=== PATIENT | female | born 1965 | race Caucasian/White ===

== ENCOUNTER 2016-06-16 17:08 | Emergency (ER) | payer BC, OTHER ==
[2016-06-16] MEDS ORDERED: ASPIRIN 81 MG CHEW TABLET As Ordered ONE (17:55)
--- NOTE | 2016-06-16 18:30 | REP ---
Clinical: Chest pain . Comparison: 01/25/2005 . Technique: PA and lateral. Findings: The mediastinum and cardiac silhouette are normal. The lung alvarez are clear and without acute consolidation, effusion, or pneumothorax. The skeletal structures are intact and normal. Impression: 1. No acute cardiopulmonary process. Signed by Timbo Quiñones MD 06/16/2016 06:22 P
[2016-06-16 18:43] LABS: BASO # 0.3 K/mm3 (0.0-0.2); BASO % 2.3 % (0.0-1.0); EOS # 0.2 K/mm3 (0.0-0.50); EOS % 1.8 % (0.0-3.0); LARGE UNSTAINED CELL # 0.2 K/mm3 (0.0-0.4); LARGE UNSTAINED CELL % 1.6 % (0.0-4.0); LYMPH % 25.5 % (24.0-44.0); MEAN CORPUSCULAR HEMOGLOBIN 30.4 pg (27.0-33.0); MEAN CORPUSCULAR HGB CONC 34.4 g/dl (32.0-36.5); MEAN CORPUSCULAR VOLUME 88.4 fl (80.0-96.0); MONO # 0.7 K/mm3 (0.0-0.8); NEUTROPHILS % 62.8 % (36.0-66.0); PLATELET COUNT, AUTOMATED 331 k/mm3 (150-450); RED CELL DISTRIBUTION WIDTH 13.1 % (11.5-14.5); WHITE BLOOD COUNT 11.2 K/mm3 (4.0-10.0)
[2016-06-16 19:03] LABS: ALBUMIN/GLOBULIN RATIO 1.29 (1.00-1.93); ALKALINE PHOSPHATASE 96 U/L (45-117); ALT/SGPT 32 U/L (12-78); ANION GAP 8 MEQ/L (8-16); AST/SGOT 11 U/L (15-37); BILIRUBIN,DIRECT 0.1 MG/DL (0.0-0.2); BILIRUBIN,TOTAL 0.5 MG/DL (0.2-1.0); BLOOD UREA NITROGEN 15 MG/DL (7-18); CARBON DIOXIDE LEVEL 30 MEQ/L (21-32); CHLORIDE LEVEL 103 MEQ/L (98-107); CREATININE FOR GFR 0.77 MG/DL (0.55-1.02); GLOMERULAR FILTRATION RATE > 60.0 (>58); GLUCOSE, FASTING 191 MG/DL (70-105); POTASSIUM SERUM 3.6 MEQ/L (3.5-5.1); SODIUM LEVEL 141 MEQ/L (136-145); TOTAL PROTEIN 7.1 GM/DL (6.4-8.2)
[2016-06-16] MEDS ORDERED: ISOVUE-370 76% 100ML VIAL (Q9967) As Ordered ONE (19:59)
--- NOTE | 2016-06-16 21:10 | REPUSA ---
CLINICAL HISTORY: Abdominal pain. TECHNIQUE: Multiple axial, sagittal and coronal CT images were obtained through the abdomen and pelvi s after administration of intravenous contrast material. COMMENTS: The liver demonstrates decreased attenuation compatible with fatty infiltration, without mass or def ect. There is no intra or extrahepatic biliary ductal dilatation. The spleen is normal. The gallbladd er is surgically absent. The pancreas is of normal contour and attenuation characteristics. There is no evidence of adrenal mass. Both kidneys demonstrate prompt and equal nephrograms. The kidneys are normal in size, shape and conf iguration. There is no evidence of renal or ureteral mass. No renal or ureteral calculi are identifie d. There is no hydroureter or hydronephrosis. No evidence for appendicitis. There is no bowel wall thickening. No evidence for small or large star l obstruction. There is no evidence of abdominal ascites or lymphadenopathy. There is no evidence of intrinsic or extrinsic bladder mass. There is no pelvic ascites or lymphadeno dorothy. 3.5 cm right ovarian cyst is seen. The uterus and left ovary are unremarkable. Images of the lung bases show no evidence of pleural or parenchymal mass. There are no pleural effusi ons. The bony structures are free of lytic or blastic lesions. Multilevel degenerative changes are seen in volving the thoracolumbar spine. Scattered calcifications are seen involving the aorta and major bran ches compatible with atherosclerosis. IMPRESSION: Fatty liver. 3.5 cm right ovarian cyst is seen. Consider follow-up pelvic ultrasound. No evidence of diverticulosis or diverticulitis. Thank you for your kind referral of this patient.
[2016-06-16] MEDS ORDERED: NORCO, ANEXSIA 5/325MG TABLET (HYDROcodone/ACETAMINOPHEN) As Ordered ONE (21:51)
--- NOTE | 2016-06-16 21:59 | EDDOCDS ---
Physician Documentation [facility] Name: Padmini Du Age: 50 yrs Sex: Female : 1965 Arrival Date: 06/16/2016 Time: 17:08 Bed 5 Private MD: Selwyn Garcia Disposition: 06/16 21:49 Critical Care: Critical care not applicable. le Disposition: 06/16/16 21:47 Discharged to Home/Self Care. Impression: Other abdominal pain - LUQ, LLQ, uncertain etiology, Other ovarian cysts - right. - Condition is Stable. - Discharge Instructions: Ovarian Cyst, Abdominal Pain, Women. - Medication Reconciliation, Local Pharmacy Hours form. - Follow up: Selwyn Garcia; When: Call to arrange an appointment; Reason: Recheck today's complaints, Continuance of care. - Problem is new. - Symptoms have improved. - Notes: Return to the ED for worsening symptoms or any other concerns Historical: - Allergies: no known allergies; - Home Meds: 1. aspirin 81 mg Oral tab 1 tab once daily 2. hydrochlorothiazide 25 mg Oral tab 1 tab once daily 3. simvastatin 40 mg Oral tab 1 tab once daily 4. ramipril 2.5 mg Oral cap 1 cap once daily 5. metformin 1,000 mg Oral tab daily 6. Metamucil Smooth Texture Oral pack daily 7. ranitidine HCl 150 mg Oral tbef as needed 8. Probiotic 10 billion cell oral cap daily - PMHx: Hypertension; Hypercholesterolemia; Diabetes - NIDDM: controlled; - PSHx: Adenoidectomy; Tonsillectomy; Cholecystectomy; - Social history: Smoking status: Patient states was never smoker of tobacco. No barriers to communication noted, The patient speaks fluent Brazilian. - Family history: Pertinent for heart disease, A-fib. - : The pt / caregiver states he / she is not on anticoagulants. Home medication list is obtained from the patient. - Exposure Risk Screening:: None identified. CAR CARDER: 18:04 LMP 05/18/2016 kc3 Vital Signs: 17:09 BP 176 / 89; Pulse 100; Resp 18 S; Temp 98.4(O); Pulse Ox 98% on R/A; Weight 90.72 kg / dd6 200 lbs (R); Height 5 ft. 4 in. (162.56 cm) (R); 17:31 BP 133 / 75 (auto/); kc3 17:33 Pulse 92 MON; Pulse Ox 96% ; kc3 17:46 BP 132 / 70 (auto/); kc3 17:47 Pulse 88 MON; Pulse Ox 95% ; kc3 18:01 BP 125 / 69 (auto/); kc3 18:01 Pulse 100 MON; Pulse Ox 96% ; kc3 18:16 BP 130 / 73 (auto/); kc3 18:17 Pulse 88 MON; Pulse Ox 96% ; kc3 18:31 BP 110 / 84 (auto/); kc3 18:32 Pulse 90 MON; Pulse Ox 97% ; kc3 21:50 BP 127 / 73; Pulse 87; Resp 18; Temp 99.1(TE); Pulse Ox 98% on R/A; Pain 4/10; faisal 17:09 Body Mass Index 34.33 (90.72 kg, 162.56 cm) dd6 MDM: 17:24 ECG WITH READING ER PHYS+CARDIAG ordered. EDMS 17:51 Aspirin Chewable Tablet 324 mg PO once ordered. le 17:51 Head Of Merchandise Buying/Pulse Ox/q 30 min VS ordered. le 17:51 IV Saline Lock ordered. le 17:51 Rhythm Strip to chart ordered. le 17:51 Undress patient appropriately for examination ordered. le 17:51 Basic Metabolic Profile Ordered. EDMS 17:51 CBC with Diff Ordered. EDMS 17:51 Cardiac Injury Profile Ordered. EDMS 17:51 D-Dimer Quant Ordered. EDMS 17:51 Troponin Ordered. EDMS 17:51 Liver Profile Ordered. EDMS 17:51 Lipase Ordered. EDMS 17:53 Chest, 2 View (pa\E\lat) Ordered. EDMS 18:33 Financial registration complete. zo 18:33 [facility] [place] Payment Agreement was scanned into [employer] and attached to record. zo 19:40 Basic Metabolic Profile Reviewed. le 19:40 CBC with Diff Reviewed. le 19:40 Liver Profile Reviewed. le 19:40 Cardiac Injury Profile Reviewed. le 19:40 D-Dimer Quant Reviewed. le 19:40 Troponin Reviewed. le 19:40 Lipase Reviewed. le 19:40 Chest, 2 View (pa\E\lat) Reviewed. le 19:42 CT ABD & PELVIS: IV Contrast Only Ordered. EDMS 21:43 Fluid Challenge ordered. le 21:47 HYDROcodone-acetaminophen 5 mg-325 mg 1 tabs PO once ordered. le Administered Medications: 18:01 Drug: Aspirin 324 mg [aspirin 81 mg chewable tablet (4 tabs)] Route: PO; kc3 21:55 Drug: HYDROcodone-acetaminophen 1 tabs [hydrocodone 5 mg-acetaminophen 325 mg tablet (1 af2 tabs)] Route: PO; Signatures: Dispatcher [employer] EDAna Andrade Lisa, DEPUTY COURT DEPUTY COURT Madeline Gomez RN RN rs3 Maribel Kern RN RN af2 Sharlene Ag RN RN kc3 The chart was reviewed and I authenticate all verbal orders and agree with the evaluation and treatment provided.Attachments: 18:33 [facility] [place] Payment Agreement zo MTDD
--- NOTE | 2016-06-16 22:00 | EDDOCDS ---
Nurse's Notes [facility] Name: Padmini Du Age: 50 yrs Sex: Female : 1965 Arrival Date: 06/16/2016 Time: 17:08 Bed 5 Private MD: Selwyn Garcia Diagnosis: Other abdominal pain-LUQ, LLQ, uncertain etiology;Other ovarian cysts-right Presentation: 06/16 17:14 Presenting complaint: Patient states: left upper abdomen pain radiates to back and hip. rs3 was seen at urgent care and had EKG, sent her here. Aspirin was not taken prior to arrival. Adult Sepsis Screening: The patient does not have new or worsening altered mentation. Patient's respiratory rate is less than 22. Systolic blood pressure is greater than 100. Patient has a qSOFA score of 0- Negative Sepsis Screen. Suicide/Homicide risk assessment- the patient denies having any suicidal and/or homicidal ideations and does not present with any other emotional, behavioral or mental health complaints. Status: Patient is not a consumer services advisor or dependent. Transition of care: patient was not received from another setting of care. 17:14 Acuity: KRYSTLE Level 3 rs3 17:14 Method Of Arrival: Walkin/Carried/Asstd rs3 Triage Assessment: 17:18 General: Appears in no apparent distress. Pain: Location: left upper quadrant. Pt rs3 Declines HIV testing. Cardiovascular: Chest pain is described as Pain is 4 out of 10 on a pain scale. radiates back episodes are intermittent began 2 days ago. SHIRRER: 18:04 LMP 05/18/2016 kc3 Historical: - Allergies: no known allergies; - Home Meds: 1. aspirin 81 mg Oral tab 1 tab once daily 2. hydrochlorothiazide 25 mg Oral tab 1 tab once daily 3. simvastatin 40 mg Oral tab 1 tab once daily 4. ramipril 2.5 mg Oral cap 1 cap once daily 5. metformin 1,000 mg Oral tab daily 6. Metamucil Smooth Texture Oral pack daily 7. ranitidine HCl 150 mg Oral tbef as needed 8. Probiotic 10 billion cell oral cap daily - PMHx: Hypertension; Hypercholesterolemia; Diabetes - NIDDM: controlled; - PSHx: Adenoidectomy; Tonsillectomy; Cholecystectomy; - Social history: Smoking status: Patient states was never smoker of tobacco. No barriers to communication noted, The patient speaks fluent Guamanian. - Family history: Pertinent for heart disease, A-fib. - : The pt / caregiver states he / she is not on anticoagulants. Home medication list is obtained from the patient. - Exposure Risk Screening:: None identified. Screenin:49 Screening information is obtained from the patient. Fall risk: No risks identified. kc3 Assistance ADL's: requires no assistance with activities of daily living. Abuse/DV Screen: The patient / caregiver reports he/she is: not in a situation that causes fear, pain or injury. Nutritional screening: No deficits noted. home support is adequate. 18:03 Advance Directives: Currently, there is a health care proxy, Kwame Du, . kc3 Assessment: 17:45 General: Appears in no apparent distress, comfortable, Behavior is appropriate for age. kc3 Pain: Location: left scapular area and left upper quadrant Pain currently is 4 out of 10 on a pain scale. Neurological: Level of Consciousness is awake, alert, obeys commands, Oriented to person, place, time. Cardiovascular: Rhythm is sinus rhythm Chest pain is denied. Respiratory: Airway is patent Respiratory effort is even, unlabored. Respiratory: Denies shortness of breath. GI: Denies nausea. Derm: Skin is pink, warm & dry. Musculoskeletal: Circulation, motion, and sensation intact. 17:56 General: Leslie Rubio NP at bedside. . kc3 18:38 General: Appears in no apparent distress, comfortable, Behavior is appropriate for age, kc3 cooperative. Pain: Location: left scapular area Pain currently is 5 out of 10 on a pain scale. Neurological: Level of Consciousness is awake, alert, obeys commands, Oriented to person, place, time. Cardiovascular: Rhythm is sinus rhythm. Respiratory: Airway is patent Respiratory effort is even, unlabored. Derm: Skin is pink, warm & dry. Musculoskeletal: Circulation, motion, and sensation intact. 19:12 General: Appears in no apparent distress, comfortable, Behavior is appropriate for age, af2 cooperative, Assumed care of pt at this time, pt is lying on stretcher resting quietly without complaint. Family remains at bedside. Updated regarding plan of care.. Neurological: Level of Consciousness is awake, alert, obeys commands, Oriented to person, place, time. Cardiovascular: Chest pain is denied. Respiratory: Airway is patent Respiratory effort is even, unlabored. GI:. Derm: Skin is pink, warm & dry. Musculoskeletal: Reports pain in back. 20:30 General: Appears in no apparent distress, comfortable, Behavior is appropriate for age, af2 cooperative, pt transported to ct, tolerated procedure well. piv patent.. 21:28 General: Appears in no apparent distress, comfortable, Behavior is appropriate for age, af2 cooperative. Neurological: Level of Consciousness is awake, alert, obeys commands, Oriented to person, place, time. Respiratory: Airway is patent Respiratory effort is even, unlabored. Derm: Skin is pink, warm & dry. Vital Signs: 17:09 BP 176 / 89; Pulse 100; Resp 18 S; Temp 98.4(O); Pulse Ox 98% on R/A; Weight 90.72 kg dd6 (R); Height 5 ft. 4 in. (162.56 cm) (R); 17:31 BP 133 / 75 (auto/); kc3 17:33 Pulse 92 MON; Pulse Ox 96% ; kc3 17:46 BP 132 / 70 (auto/); kc3 17:47 Pulse 88 MON; Pulse Ox 95% ; kc3 18:01 BP 125 / 69 (auto/); kc3 18:01 Pulse 100 MON; Pulse Ox 96% ; kc3 18:16 BP 130 / 73 (auto/); kc3 18:17 Pulse 88 MON; Pulse Ox 96% ; kc3 18:31 BP 110 / 84 (auto/); kc3 18:32 Pulse 90 MON; Pulse Ox 97% ; kc3 21:50 BP 127 / 73; Pulse 87; Resp 18; Temp 99.1(TE); Pulse Ox 98% on R/A; Pain 4/10; faisal 17:09 Body Mass Index 34.33 (90.72 kg, 162.56 cm) dd6 Vitals: 17:09 Log In Time: June 16, 2016 at 17:07. dd6 ED Course: 17:09 Patient visited by Marco Antonio Pate PCA. dd6 17:09 Selwyn Garcia is Private Physician. dd6 17:09 Patient moved to Waiting dd6 17:10 Patient moved to Pre RCE dd6 17:13 Patient visited by Cami Spencer PCA. bnb 17:16 Triage Initiated rs3 17:21 Patient moved to 5 dls 17:34 Pt greeted and oriented to ED. Patient advised of names of staff involved in care, bnb location of call bush, wait times and NPO status. Patient has correct armband on for positive identification. Placed in gown. Bed in low position. Call light in reach. Side rails up X 1. 17:35 Pt greeted and oriented to ED. Patient advised of names of staff involved in care, bnb location of call bush, wait times and NPO status. gambling monitor on. Pulse ox on. NIBP on. 17:35 EKG done. (by ED staff). Reviewed by Jose Alberto Welch MD. bnb 17:36 Patient visited by Cami Spencer PCA. bnb 17:37 [facility] le 17:48 Inserted saline lock: 18 gauge in right antecubital area and blood collected. The kc3 patient tolerated the procedure well. performed by Nelida Heath RN. 17:49 The patient / caregiver is instructed regarding the plan of care and ED course. kc3 17:56 Lipase Sent. kc3 17:56 Liver Profile Sent. kc3 17:56 Basic Metabolic Profile Sent. kc3 17:56 CBC with Diff Sent. kc3 17:57 Patient visited by Sharlene Ag RN. kc3 17:57 Cardiac Injury Profile Sent. kc3 17:57 D-Dimer Quant Sent. kc3 17:57 Troponin Sent. kc3 17:59 Patient visited by Leslie Rubio FNP. le 18:05 Patient visited by Sharlene Ag RN. kc3 18:33 [facility] Payment Agreement was scanned into [employer] and attached to record. zo 18:34 Chest, 2 View (pa\E\lat) Returned. EDMS 18:38 Patient visited by Sharlene Ag RN. kc3 18:39 Patient visited by Sharlene Ag RN. kc3 19:12 Patient visited by Maribel Kern RN. af2 19:14 Patient visited by Maribel Kern RN. af2 19:57 Patient visited by Maribel Kern RN. af2 20:26 Maribel Kern RN is Primary Nurse. af2 20:58 Patient visited by Maribel Kern RN. af2 21:29 Patient visited by Maribel KernDUTCH. af2 21:30 CT ABD & PELVIS: IV Contrast Only Returned. EDMS 21:47 Selwyn Garcia is Referral Physician. le 21:50 Patient visited by Earlene Almazan PCA. faisal 21:58 Discontinued IV lock intact, bleeding controlled, pressure dressing applied, No af2 redness/swelling at site. No procedures done that require assistance. Administered Medications: 18:01 Drug: Aspirin 324 mg [aspirin 81 mg chewable tablet (4 tabs)] Route: PO; kc3 21:55 Drug: HYDROcodone-acetaminophen 1 tabs [hydrocodone 5 mg-acetaminophen 325 mg tablet (1 af2 tabs)] Route: PO; Order Results: Lab Order: Basic Metabolic Profile; SPEC'M 06/16/16 17:32 Test: GLUCOSE, FASTING; Value: 191; Range: 70-105; Abnormal: Above high normal; Units: MG/DL; Status: F Test: BLOOD UREA NITROGEN; Value: 15; Range: 7-18; Units: MG/DL; Status: F Test: CREATININE FOR GFR; Value: 0.77; Range: 0.55-1.02; Units: MG/DL; Status: F Test: GLOMERULAR FILTRATION RATE; Value: > 60.0; Range: >58; Status: F Test: SODIUM LEVEL; Value: 141; Range: 136-145; Units: MEQ/L; Status: F Test: POTASSIUM SERUM; Value: 3.6; Range: 3.5-5.1; Units: MEQ/L; Status: F Test: CHLORIDE LEVEL; Value: 103; Range: 98-107; Units: MEQ/L; Status: F Test: CARBON DIOXIDE LEVEL; Value: 30; Range: 21-32; Units: MEQ/L; Status: F Test: ANION GAP; Value: 8; Range: 8-16; Units: MEQ/L; Status: F Test: CALCIUM LEVEL; Value: 9.0; Range: 8.5-10.1; Units: MG/DL; Status: F Test Note: ; Units are mL/min/1.73 m2 Chronic Kidney Disease Staging per NKF: Stage I & II GFR >=60 Normal to Mildly Decreased Stage III GFR 30-59 Moderately Decreased Stage IV GFR 15-29 Severely Decreased Stage V GFR <15 Very Little GFR Left ESRD GFR <15 on [employer]ING[employer] ASSEMBLER Lab Order: CBC with Diff; SPEC'M 06/16/16 17:32 Test: WHITE BLOOD COUNT; Value: 11.2; Range: 4.0-10.0; Abnormal: Above high normal; Units: K/mm3; Status: F Test: RED BLOOD COUNT; Value: 4.72; Range: 4.00-5.40; Units: M/mm3; Status: F Test: HEMOGLOBIN; Value: 14.4; Range: 12.0-16.0; Units: g/dl; Status: F Test: HEMATOCRIT; Value: 41.8; Range: 36.0-47.0; Units: %; Status: F Test: MEAN CORPUSCULAR VOLUME; Value: 88.4; Range: 80.0-96.0; Units: fl; Status: F Test: MEAN CORPUSCULAR HEMOGLOBIN; Value: 30.4; Range: 27.0-33.0; Units: pg; Status: F Test: MEAN CORPUSCULAR HGB CONC; Value: 34.4; Range: 32.0-36.5; Units: g/dl; Status: F Test: RED CELL DISTRIBUTION WIDTH; Value: 13.1; Range: 11.5-14.5; Units: %; Status: F Test: PLATELET COUNT, AUTOMATED; Value: 331; Range: 150-450; Units: k/mm3; Status: F Test: NEUTROPHILS %; Value: 62.8; Range: 36.0-66.0; Units: %; Status: F Test: LYMPH %; Value: 25.5; Range: 24.0-44.0; Units: %; Status: F Test: MONO %; Value: 6.0; Range: 0.0-5.0; Abnormal: Above high normal; Units: %; Status: F Test: EOS %; Value: 1.8; Range: 0.0-3.0; Units: %; Status: F Test: BASO %; Value: 2.3; Range: 0.0-1.0; Abnormal: Above high normal; Units: %; Status: F Test: LARGE UNSTAINED CELL %; Value: 1.6; Range: 0.0-4.0; Units: %; Status: F Test: NEUTROPHILS #; Value: 7.0; Range: 1.8-7.7; Units: K/mm3; Status: F Test: LYMPH #; Value: 3.0; Range: 1.5-4.5; Units: K/mm3; Status: F Test: MONO #; Value: 0.7; Range: 0.0-0.8; Units: K/mm3; Status: F Test: EOS #; Value: 0.2; Range: 0.0-0.50; Units: K/mm3; Status: F Test: BASO #; Value: 0.3; Range: 0.0-0.2; Abnormal: Above high normal; Units: K/mm3; Status: F Test: LARGE UNSTAINED CELL #; Value: 0.2; Range: 0.0-0.4; Units: K/mm3; Status: F Lab Order: Cardiac Injury Profile; [facility] 06/16/16 17:32 Test: CPK CREATINE PHOSPHOKINASE; Value: 70; Range: 26-192; Units: U/L; Status: F Test: CK-MB VALUE MASS; Value: 1.0; Range: 0.0-3.6; Units: NG/ML; Status: F Test: MB/CK RELATIVE INDEX; Value: 1.42; Range: < OR =4; Status: F Test Note: ; DIAGNOSIS CRITERIA MMB ng/ml Relative Index (RI) NON-AMI < or = 5 N/A [place] > 5 < or = 4 AMI > 5 > 4 Lab Order: D-Dimer Quant; [facility] 06/16/16 17:32 Test: D-DIMER QUANT; Value: < 270.0; Range: <500; Units: ng/ml; Status: F Lab Order: Troponin; [facility] 06/16/16 17:32 Test: TROPONIN I; Value: < 0.02; Range: < 0.10; Units: NG/ML; Status: F Test Note: ; Troponin I Reference Interval for [employer] LOCI: 99th Percentile= 0.00-0.045 ng/ml Risk Stratification: <= 0.10 ng/ml Decreased Risk for Adverse Clinical Events. 0.10-1.50 ng/ml Increased Risk for Adverse Clinical Events. Evaluation of additional criterion and/or repeat testing in 2-6 hours is suggested to rule out myocardial damage. >= 1.50 ng/ml Indicative of Myocardial Injury. Lab Order: Liver Profile; SPEC'M 06/16/16 17:32 Test: AST/SGOT; Value: 11; Range: 15-37; Abnormal: Below low normal; Units: U/L; Status: F Test: ALT/SGPT; Value: 32; Range: 12-78; Units: U/L; Status: F Test: ALKALINE PHOSPHATASE; Value: 96; Range: 45-117; Units: U/L; Status: F Test: BILIRUBIN,TOTAL; Value: 0.5; Range: 0.2-1.0; Units: MG/DL; Status: F Test: BILIRUBIN,DIRECT; Value: 0.1; Range: 0.0-0.2; Units: MG/DL; Status: F Test: TOTAL PROTEIN; Value: 7.1; Range: 6.4-8.2; Units: GM/DL; Status: F Test: ALBUMIN; Value: 4.0; Range: 3.2-5.2; Units: GM/DL; Status: F Test: ALBUMIN/GLOBULIN RATIO; Value: 1.29; Range: 1.00-1.93; Status: F Lab Order: Lipase; SPEC'M 06/16/16 17:32 Test: LIPASE; Value: 169; Range: 73-393; Units: U/L; Status: F Radiology Order: Chest, 2 View (pa\E\lat) Test: Chest, 2 View (pa\E\lat) REASON FOR EXAMINATION: Chest Pain; Clinical: Chest pain .; ; Comparison: 01/25/2005 .; ; Technique: PA and lateral.; ; Findings:; The mediastinum and cardiac silhouette are normal. The lung alvarez are clear and; without acute consolidation, effusion, or pneumothorax. The skeletal structures; are intact and normal.; ; Impression:; 1. No acute cardiopulmonary process.; ; ; Signed by; Timbo Quiñones MD 06/16/2016 06:22 P; Radiology Order: CT ABD & PELVIS: IV Contrast Only Test: CT ABD & PELVIS: IV Contrast Only REASON FOR EXAMINATION: Diverticulitis; ; CLINICAL HISTORY: Abdominal pain.; TECHNIQUE: Multiple axial, sagittal and coronal CT images were obtained through the abdomen and pelvi; s after administration of intravenous contrast material.; COMMENTS:; The liver demonstrates decreased attenuation compatible with fatty infiltration, without mass or def; ect. There is no intra or extrahepatic biliary ductal dilatation. The spleen is normal. The gallbladd; er is surgically absent. The pancreas is of normal contour and attenuation characteristics. There is; no evidence of adrenal mass.; Both kidneys demonstrate prompt and equal nephrograms. The kidneys are normal in size, shape and conf; iguration. There is no evidence of renal or ureteral mass. No renal or ureteral calculi are identifie; d. There is no hydroureter or hydronephrosis.; No evidence for appendicitis. There is no bowel wall thickening. No evidence for small or large star; l obstruction. There is no evidence of abdominal ascites or lymphadenopathy.; There is no evidence of intrinsic or extrinsic bladder mass. There is no pelvic ascites or lymphadeno; dorothy. 3.5 cm right ovarian cyst is seen. The uterus and left ovary are unremarkable.; Images of the lung bases show no evidence of pleural or parenchymal mass. There are no pleural effusi; ons.; The bony structures are free of lytic or blastic lesions. Multilevel degenerative changes are seen in; volving the thoracolumbar spine. Scattered calcifications are seen involving the aorta and major bran; ches compatible with atherosclerosis.; IMPRESSION:; Fatty liver.; 3.5 cm right ovarian cyst is seen. Consider follow-up pelvic ultrasound.; No evidence of diverticulosis or diverticulitis.; Thank you for your kind referral of this patient.; ; Outcome: 21:47 Discharge ordered by Provider. le 21:57 Discharge Assessment: Patient awake, alert and oriented x 3. No cognitive and/or af2 functional deficits noted. Patient verbalized understanding of disposition instructions. patient administered narcotics - no. The following High Risk Discharge criteria are identified: None. Discharged to home ambulatory. Condition: stable. Discharge instructions given to patient, Instructed on discharge instructions, follow up and referral plans. medication usage, no driving heavy equipment, no drinking with medication, Demonstrated understanding of instructions, medications, Pt was receptive of discharge instructions/ teaching. CT Study completed. Property :Personal belongings accompany Pt. 21:58 Patient left the ED. af2 Signatures: Dispatcher [employer] EDMagi Salcido RN RN dls Olin, Zoeann zo Westcott, Leslie, MANAGER BUSINESS SYSTEMS MANAGER BUSINESS SYSTEMS Marco Antonio Delgado, INSURANCE UNDERWRITING ASSISTANT INSURANCE UNDERWRITING ASSISTANT dd6 Kat,Madeline,RN RN rs3 Earlene Almazan, INSURANCE UNDERWRITING ASSISTANT INSURANCE UNDERWRITING ASSISTANT faisal Concha,Maribel,RN RN af2 Sharlene Ag,RN RN kc3 Cami Spencer, INSURANCE UNDERWRITING ASSISTANT INSURANCE UNDERWRITING ASSISTANT bnb MTDD
--- NOTE | 2016-06-17 12:54 | ECGEPIP ---
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
--- NOTE | 2016-06-18 22:59 | EDDOCDS ---
Physician Documentation [facility] Name: Padmini Du Age: 50 yrs Sex: Female : 1965 Arrival Date: 06/16/2016 Time: 17:08 Bed 5 Private MD: Selwyn Garcia Disposition: 06/16 21:49 Critical Care: Critical care not applicable. le Disposition: 06/16/16 21:47 Discharged to Home/Self Care. Impression: Other abdominal pain - LUQ, LLQ, uncertain etiology, Other ovarian cysts - right. - Condition is Stable. - Discharge Instructions: Ovarian Cyst, Abdominal Pain, Women. - Medication Reconciliation, Local Pharmacy Hours form. - Follow up: Selwyn Garcia; When: Call to arrange an appointment; Reason: Recheck today's complaints, Continuance of care. - Problem is new. - Symptoms have improved. - Notes: Return to the ED for worsening symptoms or any other concerns Historical: - Allergies: no known allergies; - Home Meds: 1. aspirin 81 mg Oral tab 1 tab once daily 2. hydrochlorothiazide 25 mg Oral tab 1 tab once daily 3. simvastatin 40 mg Oral tab 1 tab once daily 4. ramipril 2.5 mg Oral cap 1 cap once daily 5. metformin 1,000 mg Oral tab daily 6. Metamucil Smooth Texture Oral pack daily 7. ranitidine HCl 150 mg Oral tbef as needed 8. Probiotic 10 billion cell oral cap daily - PMHx: Hypertension; Hypercholesterolemia; Diabetes - NIDDM: controlled; - PSHx: Adenoidectomy; Tonsillectomy; Cholecystectomy; - Social history: Smoking status: Patient states was never smoker of tobacco. No barriers to communication noted, The patient speaks fluent Japanese. - Family history: Pertinent for heart disease, A-fib. - : The pt / caregiver states he / she is not on anticoagulants. Home medication list is obtained from the patient. - Exposure Risk Screening:: None identified. 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 4 in. (162.56 cm) (R); 17:31 BP 133 / 75 (auto/); kc3 17:33 Pulse 92 MON; Pulse Ox 96% ; kc3 17:46 BP 132 / 70 (auto/); kc3 17:47 Pulse 88 MON; Pulse Ox 95% ; kc3 18:01 BP 125 / 69 (auto/); kc3 18:01 Pulse 100 MON; Pulse Ox 96% ; kc3 18:16 BP 130 / 73 (auto/); kc3 18:17 Pulse 88 MON; Pulse Ox 96% ; kc3 18:31 BP 110 / 84 (auto/); kc3 18:32 Pulse 90 MON; Pulse Ox 97% ; kc3 21:50 BP 127 / 73; Pulse 87; Resp 18; Temp 99.1(TE); Pulse Ox 98% on R/A; Pain 4/10; faisal 17:09 Body Mass Index 34.33 (90.72 kg, 162.56 cm) dd6 MDM: 17:24 ECG WITH READING ER PHYS+CARDIAG ordered. EDMS 17:51 Aspirin Chewable Tablet 324 mg PO once ordered. le 17:51 [employer]/Pulse Ox/q 30 min VS ordered. le 17:51 IV Saline Lock ordered. le 17:51 Rhythm Strip to chart ordered. le 17:51 Undress patient appropriately for examination ordered. le 17:51 Basic Metabolic Profile Ordered. EDMS 17:51 CBC with Diff Ordered. EDMS 17:51 Cardiac Injury Profile Ordered. EDMS 17:51 D-Dimer Quant Ordered. EDMS 17:51 Troponin Ordered. EDMS 17:51 Liver Profile Ordered. EDMS 17:51 Lipase Ordered. EDMS 17:53 Chest, 2 View (pa\E\lat) Ordered. EDMS 18:33 Financial registration complete. zo 18:33 [facility] [place] was scanned into [employer] and attached to record. zo 19:40 Basic Metabolic Profile Reviewed. le 19:40 CBC with Diff Reviewed. le 19:40 Liver Profile Reviewed. le 19:40 Cardiac Injury Profile Reviewed. le 19:40 D-Dimer Quant Reviewed. le 19:40 Troponin Reviewed. le 19:40 Lipase Reviewed. le 19:40 Chest, 2 View (pa\E\lat) Reviewed. le 19:42 CT ABD & PELVIS: IV Contrast Only Ordered. EDMS 21:43 Fluid Challenge ordered. le 21:47 HYDROcodone-acetaminophen 5 mg-325 mg 1 tabs PO once ordered. le 06/17 11:29 T-Sheet-- Draft Copy was scanned into [employer] and attached to record. gb 11:41 ECG/EKG was scanned into [employer] and attached to record. gb Administered Medications: 06/16 18:01 Drug: Aspirin 324 mg [aspirin 81 mg chewable tablet (4 tabs)] Route: PO; kc3 21:55 Drug: HYDROcodone-acetaminophen 1 tabs [hydrocodone 5 mg-acetaminophen 325 mg tablet (1 af2 tabs)] Route: PO; Signatures: Dispatcher [employer] EDMS Dinorah Brito, Reg Reg gb [place], Leslie Dos Santos, GLUE MOUNTER OPERATOR GLUE MOUNTER OPERATOR Madeline GomezRN RN rs3 Maribel KernRN RN af2 Sharlene Ag,RN RN kc3 The chart was reviewed and I authenticate all verbal orders and agree with the evaluation and treatment provided.Attachments: 18:33 [facility] [place] Agreement zo 06/17 11:29 T-Sheet-- Draft Copy gb 11:41 ECG/EKG gb Chart Complete MTDD
--- NOTE | 2016-06-18 22:59 | EDDOCDS ---
Physician Documentation [facility] Name: Padmini Du Age: 50 yrs Sex: Female : 1965 Arrival Date: 06/16/2016 Time: 17:08 Bed 5 Private MD: Selwyn Garcia Disposition: 06/16 21:49 Critical Care: Critical care not applicable. le Disposition: 06/16/16 21:47 Discharged to Home/Self Care. Impression: Other abdominal pain - LUQ, LLQ, uncertain etiology, Other ovarian cysts - right. - Condition is Stable. - Discharge Instructions: Ovarian Cyst, Abdominal Pain, Women. - Medication Reconciliation, Local Pharmacy Hours form. - Follow up: Selwyn Garcia; When: Call to arrange an appointment; Reason: Recheck today's complaints, Continuance of care. - Problem is new. - Symptoms have improved. - Notes: Return to the ED for worsening symptoms or any other concerns Historical: - Allergies: no known allergies; - Home Meds: 1. aspirin 81 mg Oral tab 1 tab once daily 2. hydrochlorothiazide 25 mg Oral tab 1 tab once daily 3. simvastatin 40 mg Oral tab 1 tab once daily 4. ramipril 2.5 mg Oral cap 1 cap once daily 5. metformin 1,000 mg Oral tab daily 6. Metamucil Smooth Texture Oral pack daily 7. ranitidine HCl 150 mg Oral tbef as needed 8. Probiotic 10 billion cell oral cap daily - PMHx: Hypertension; Hypercholesterolemia; Diabetes - NIDDM: controlled; - PSHx: Adenoidectomy; Tonsillectomy; Cholecystectomy; - Social history: Smoking status: Patient states was never smoker of tobacco. No barriers to communication noted, The patient speaks fluent Palauan. - Family history: Pertinent for heart disease, A-fib. - : The pt / caregiver states he / she is not on anticoagulants. Home medication list is obtained from the patient. - Exposure Risk Screening:: None identified. 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 4 in. (162.56 cm) (R); 17:31 BP 133 / 75 (auto/); kc3 17:33 Pulse 92 MON; Pulse Ox 96% ; kc3 17:46 BP 132 / 70 (auto/); kc3 17:47 Pulse 88 MON; Pulse Ox 95% ; kc3 18:01 BP 125 / 69 (auto/); kc3 18:01 Pulse 100 MON; Pulse Ox 96% ; kc3 18:16 BP 130 / 73 (auto/); kc3 18:17 Pulse 88 MON; Pulse Ox 96% ; kc3 18:31 BP 110 / 84 (auto/); kc3 18:32 Pulse 90 MON; Pulse Ox 97% ; kc3 21:50 BP 127 / 73; Pulse 87; Resp 18; Temp 99.1(TE); Pulse Ox 98% on R/A; Pain 4/10; faisal 17:09 Body Mass Index 34.33 (90.72 kg, 162.56 cm) dd6 MDM: 17:24 ECG WITH READING ER PHYS+CARDIAG ordered. EDMS 17:51 Aspirin Chewable Tablet 324 mg PO once ordered. le 17:51 [employer]/Pulse Ox/q 30 min VS ordered. le 17:51 IV Saline Lock ordered. le 17:51 Rhythm Strip to chart ordered. le 17:51 Undress patient appropriately for examination ordered. le 17:51 Basic Metabolic Profile Ordered. EDMS 17:51 CBC with Diff Ordered. EDMS 17:51 Cardiac Injury Profile Ordered. EDMS 17:51 D-Dimer Quant Ordered. EDMS 17:51 Troponin Ordered. EDMS 17:51 Liver Profile Ordered. EDMS 17:51 Lipase Ordered. EDMS 17:53 Chest, 2 View (pa\E\lat) Ordered. EDMS 18:33 Financial registration complete. zo 18:33 [facility] [place] Agreement was scanned into [employer] and attached to record. zo 19:40 Basic Metabolic Profile Reviewed. le 19:40 CBC with Diff Reviewed. le 19:40 Liver Profile Reviewed. le 19:40 Cardiac Injury Profile Reviewed. le 19:40 D-Dimer Quant Reviewed. le 19:40 Troponin Reviewed. le 19:40 Lipase Reviewed. le 19:40 Chest, 2 View (pa\E\lat) Reviewed. le 19:42 CT ABD & PELVIS: IV Contrast Only Ordered. EDMS 21:43 Fluid Challenge ordered. le 21:47 HYDROcodone-acetaminophen 5 mg-325 mg 1 tabs PO once ordered. le 06/17 11:29 T-Sheet-- Draft Copy was scanned into [employer] and attached to record. gb 11:41 ECG/EKG was scanned into [employer] and attached to record. gb Administered Medications: 06/16 18:01 Drug: Aspirin 324 mg [aspirin 81 mg chewable tablet (4 tabs)] Route: PO; kc3 21:55 Drug: HYDROcodone-acetaminophen 1 tabs [hydrocodone 5 mg-acetaminophen 325 mg tablet (1 af2 tabs)] Route: PO; Signatures: Dispatcher [employer] EDMS Dinorah Brito, Reg Reg gb [place], Leslie Dos Santos, FABRICATOR INDUSTRIAL FURNACE FABRICATOR INDUSTRIAL FURNACE Madeline GomezRN RN rs3 Maribel KernRN RN af2 Sharlene Ag,RN RN kc3 The chart was reviewed and I authenticate all verbal orders and agree with the evaluation and treatment provided.Attachments: 18:33 [facility] [place] Payment Agreement zo 06/17 11:29 T-Sheet-- Draft Copy gb 11:41 ECG/EKG gb Chart Complete MTDD
--- NOTE | 2016-06-18 22:59 | EDDOCDS ---
Nurse's Notes [facility] Name: Sandra Grodon Age: 50 yrs Sex: Female : 1965 Arrival Date: 06/16/2016 Time: 17:08 Bed 5 Private MD: Selwyn Garcia Diagnosis: Other abdominal pain-LUQ, LLQ, uncertain etiology;Other ovarian cysts-right Presentation: 06/16 17:14 Presenting complaint: Patient states: left upper abdomen pain radiates to back and hip. rs3 was seen at urgent care and had EKG, sent her here. Aspirin was not taken prior to arrival. Adult Sepsis Screening: The patient does not have new or worsening altered mentation. Patient's respiratory rate is less than 22. Systolic blood pressure is greater than 100. Patient has a qSOFA score of 0- Negative Sepsis Screen. Suicide/Homicide risk assessment- the patient denies having any suicidal and/or homicidal ideations and does not present with any other emotional, behavioral or mental health complaints. 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 Transition of care: patient was not received from another setting of care. 17:14 Acuity: KRYSTLE Level 3 rs3 17:14 Method Of Arrival: Walkin/Carried/Asstd rs3 Triage Assessment: 17:18 General: Appears in no apparent distress. Pain: Location: left upper quadrant. Pt rs3 Declines HIV testing. Cardiovascular: Chest pain is described as Pain is 4 out of 10 on a pain scale. radiates back episodes are intermittent began 2 days ago. 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 aspirin 81 mg Oral tab 1 tab once daily 2. hydrochlorothiazide 25 mg Oral tab 1 tab once daily 3. simvastatin 40 mg Oral tab 1 tab once daily 4. ramipril 2.5 mg Oral cap 1 cap once daily 5. metformin 1,000 mg Oral tab daily 6. Metamucil Smooth Texture Oral pack daily 7. ranitidine HCl 150 mg Oral tbef as needed 8. Probiotic 10 billion cell oral cap daily - PMHx: Hypertension; Hypercholesterolemia; Diabetes - NIDDM: controlled; - PSHx: Adenoidectomy; Tonsillectomy; Cholecystectomy; - Social history: Smoking status: Patient states was never smoker of tobacco. No barriers to communication noted, The patient speaks fluent [place]. - Family history: Pertinent for heart disease, A-fib. - : The pt / caregiver states he / she is not on anticoagulants. Home medication list is obtained from the patient. - Exposure Risk Screening:: None identified. Screenin:49 Screening information is obtained from the patient. Fall risk: No risks identified. kc3 Assistance ADL's: requires no assistance with activities of daily living. Abuse/DV Screen: The patient / caregiver reports he/she is: not in a situation that causes fear, pain or injury. Nutritional screening: No deficits noted. home support is adequate. 18:03 Advance Directives: Currently, there is a health care proxy, Kwame Gordon, . kc3 Assessment: 17:45 General: Appears in no apparent distress, comfortable, Behavior is appropriate for age. kc3 Pain: Location: left scapular area and left upper quadrant Pain currently is 4 out of 10 on a pain scale. Neurological: Level of Consciousness is awake, alert, obeys commands, Oriented to person, place, time. Cardiovascular: Rhythm is sinus rhythm Chest pain is denied. Respiratory: Airway is patent Respiratory effort is even, unlabored. Respiratory: Denies shortness of breath. GI: Denies nausea. Derm: Skin is pink, warm & dry. Musculoskeletal: Circulation, motion, and sensation intact. 17:56 General: Leslie Rubio NP at bedside. . kc3 18:38 General: Appears in no apparent distress, comfortable, Behavior is appropriate for age, kc3 cooperative. Pain: Location: left scapular area Pain currently is 5 out of 10 on a pain scale. Neurological: Level of Consciousness is awake, alert, obeys commands, Oriented to person, place, time. Cardiovascular: Rhythm is sinus rhythm. Respiratory: Airway is patent Respiratory effort is even, unlabored. Derm: Skin is pink, warm & dry. Musculoskeletal: Circulation, motion, and sensation intact. 19:12 General: Appears in no apparent distress, comfortable, Behavior is appropriate for age, af2 cooperative, Assumed care of pt at this time, pt is lying on stretcher resting quietly without complaint. Family remains at bedside. Updated regarding plan of care.. Neurological: Level of Consciousness is awake, alert, obeys commands, Oriented to person, place, time. Cardiovascular: Chest pain is denied. Respiratory: Airway is patent Respiratory effort is even, unlabored. GI:. Derm: Skin is pink, warm & dry. Musculoskeletal: Reports pain in back. 20:30 General: Appears in no apparent distress, comfortable, Behavior is appropriate for age, af2 cooperative, pt transported to ct, tolerated procedure well. piv patent.. 21:28 General: Appears in no apparent distress, comfortable, Behavior is appropriate for age, af2 cooperative. Neurological: Level of Consciousness is awake, alert, obeys commands, Oriented to person, place, time. Respiratory: Airway is patent Respiratory effort is even, unlabored. Derm: Skin is pink, warm & dry. Vital Signs: 17:09 BP 176 / 89; Pulse 100; Resp 18 S; Temp 98.4(O); Pulse Ox 98% on R/A; Weight 90.72 kg dd6 (R); Height 5 ft. 4 in. (162.56 cm) (R); 17:31 BP 133 / 75 (auto/); kc3 17:33 Pulse 92 MON; Pulse Ox 96% ; kc3 17:46 BP 132 / 70 (auto/); kc3 17:47 Pulse 88 MON; Pulse Ox 95% ; kc3 18:01 BP 125 / 69 (auto/); kc3 18:01 Pulse 100 MON; Pulse Ox 96% ; kc3 18:16 BP 130 / 73 (auto/); kc3 18:17 Pulse 88 MON; Pulse Ox 96% ; kc3 18:31 BP 110 / 84 (auto/); kc3 18:32 Pulse 90 MON; Pulse Ox 97% ; kc3 21:50 BP 127 / 73; Pulse 87; Resp 18; Temp 99.1(TE); Pulse Ox 98% on R/A; Pain 4/10; faisal 17:09 Body Mass Index 34.33 (90.72 kg, 162.56 cm) dd6 Vitals: 17:09 Log In Time: June 16, 2016 at 17:07. dd6 ED Course: 17:09 Patient visited by Marco Antonio Pate PCA. dd6 17:09 Selwyn Garcia is Private Physician. dd6 17:09 Patient moved to Waiting dd6 17:10 Patient moved to Pre RCE dd6 17:13 Patient visited by Cami Spencer PCA. bnb 17:16 Triage Initiated rs3 17:21 Patient moved to 5 dls 17:34 Pt greeted and oriented to ED. Patient advised of names of staff involved in care, bnb location of call bush, wait times and NPO status. Patient has correct armband on for positive identification. Placed in gown. Bed in low position. Call light in reach. Side rails up X 1. 17:35 Pt greeted and oriented to ED. Patient advised of names of staff involved in care, bnb location of call bush, wait times and NPO status. bus driver/monitor on. Pulse ox on. NIBP on. 17:35 EKG done. (by ED staff). Reviewed by Jose Alberto Welch MD. bnb 17:36 Patient visited by Cami Spencer PCA. bnb 17:37 [facility] le 17:48 Inserted saline lock: 18 gauge in right antecubital area and blood collected. The kc3 patient tolerated the procedure well. performed by Nelida Heath RN. 17:49 The patient / caregiver is instructed regarding the plan of care and ED course. kc3 17:56 Lipase Sent. kc3 17:56 Liver Profile Sent. kc3 17:56 Basic Metabolic Profile Sent. kc3 17:56 CBC with Diff Sent. kc3 17:57 Patient visited by Sharlene Ag RN. kc3 17:57 Cardiac Injury Profile Sent. kc3 17:57 D-Dimer Quant Sent. kc3 17:57 Troponin Sent. kc3 17:59 Patient visited by Leslie Rubio FNP. le 18:05 Patient visited by Sharlene Ag RN. kc3 18:33 [facility] Payment Agreement was scanned into [employer] and attached to record. zo 18:34 Chest, 2 View (pa\E\lat) Returned. EDMS 18:38 Patient visited by Sharlene Ag RN. kc3 18:39 Patient visited by Sharlene Ag RN. kc3 19:12 Patient visited by Maribel Kern RN. af2 19:14 Patient visited by Maribel Kern RN. af2 19:57 Patient visited by Maribel Kern RN. af2 20:26 Maribel Kern RN is Primary Nurse. af2 20:58 Patient visited by Maribel Kern RN. af2 21:29 Patient visited by Maribel KernDUTCH. af2 21:30 CT ABD & PELVIS: IV Contrast Only Returned. EDMS 21:47 Selwyn Garcia is Referral Physician. le 21:50 Patient visited by Earlene Almazan PCA. faisal 21:58 Discontinued IV lock intact, bleeding controlled, pressure dressing applied, No af2 redness/swelling at site. No procedures done that require assistance. 06/17 11:29 T-Sheet-- Draft Copy was scanned into [employer] and attached to record. gb 11:41 ECG/EKG was scanned into [employer] and attached to record. gb 13:09 EKG-ADULT Returned. EDMS Administered Medications: 06/16 18:01 Drug: Aspirin 324 mg [aspirin 81 mg chewable tablet (4 tabs)] Route: PO; kc3 21:55 Drug: HYDROcodone-acetaminophen 1 tabs [hydrocodone 5 mg-acetaminophen 325 mg tablet (1 af2 tabs)] Route: PO; Order Results: Lab Order: Basic Metabolic Profile; SPEC'M 06/16/16 17:32 Test: GLUCOSE, FASTING; Value: 191; Range: 70-105; Abnormal: Above high normal; Units: MG/DL; Status: F Test: BLOOD UREA NITROGEN; Value: 15; Range: 7-18; Units: MG/DL; Status: F Test: CREATININE FOR GFR; Value: 0.77; Range: 0.55-1.02; Units: MG/DL; Status: F Test: GLOMERULAR FILTRATION RATE; Value: > 60.0; Range: >58; Status: F Test: SODIUM LEVEL; Value: 141; Range: 136-145; Units: MEQ/L; Status: F Test: POTASSIUM SERUM; Value: 3.6; Range: 3.5-5.1; Units: MEQ/L; Status: F Test: CHLORIDE LEVEL; Value: 103; Range: 98-107; Units: MEQ/L; Status: F Test: CARBON DIOXIDE LEVEL; Value: 30; Range: 21-32; Units: MEQ/L; Status: F Test: ANION GAP; Value: 8; Range: 8-16; Units: MEQ/L; Status: F Test: CALCIUM LEVEL; Value: 9.0; Range: 8.5-10.1; Units: MG/DL; Status: F Test Note: ; Units are mL/min/1.73 m2 Chronic Kidney Disease Staging per NKF: Stage I & II GFR >=60 Normal to Mildly Decreased Stage III GFR 30-59 Moderately Decreased Stage IV GFR 15-29 Severely Decreased Stage V GFR <15 Very Little GFR Left ESRD GFR <15 on HOME HOUSEKEEPER Lab Order: CBC with Diff; [facility] 06/16/16 17:32 Test: WHITE BLOOD COUNT; Value: 11.2; Range: 4.0-10.0; Abnormal: Above high normal; Units: K/mm3; Status: F Test: RED BLOOD COUNT; Value: 4.72; Range: 4.00-5.40; Units: M/mm3; Status: F Test: HEMOGLOBIN; Value: 14.4; Range: 12.0-16.0; Units: g/dl; Status: F Test: HEMATOCRIT; Value: 41.8; Range: 36.0-47.0; Units: %; Status: F Test: MEAN CORPUSCULAR VOLUME; Value: 88.4; Range: 80.0-96.0; Units: fl; Status: F Test: MEAN CORPUSCULAR HEMOGLOBIN; Value: 30.4; Range: 27.0-33.0; Units: pg; Status: F Test: MEAN CORPUSCULAR HGB CONC; Value: 34.4; Range: 32.0-36.5; Units: g/dl; Status: F Test: RED CELL DISTRIBUTION WIDTH; Value: 13.1; Range: 11.5-14.5; Units: %; Status: F Test: PLATELET COUNT, AUTOMATED; Value: 331; Range: 150-450; Units: k/mm3; Status: F Test: NEUTROPHILS %; Value: 62.8; Range: 36.0-66.0; Units: %; Status: F Test: LYMPH %; Value: 25.5; Range: 24.0-44.0; Units: %; Status: F Test: MONO %; Value: 6.0; Range: 0.0-5.0; Abnormal: Above high normal; Units: %; Status: F Test: EOS %; Value: 1.8; Range: 0.0-3.0; Units: %; Status: F Test: BASO %; Value: 2.3; Range: 0.0-1.0; Abnormal: Above high normal; Units: %; Status: F Test: LARGE UNSTAINED CELL %; Value: 1.6; Range: 0.0-4.0; Units: %; Status: F Test: NEUTROPHILS #; Value: 7.0; Range: 1.8-7.7; Units: K/mm3; Status: F Test: LYMPH #; Value: 3.0; Range: 1.5-4.5; Units: K/mm3; Status: F Test: MONO #; Value: 0.7; Range: 0.0-0.8; Units: K/mm3; Status: F Test: EOS #; Value: 0.2; Range: 0.0-0.50; Units: K/mm3; Status: F Test: BASO #; Value: 0.3; Range: 0.0-0.2; Abnormal: Above high normal; Units: K/mm3; Status: F Test: LARGE UNSTAINED CELL #; Value: 0.2; Range: 0.0-0.4; Units: K/mm3; Status: F Lab Order: Cardiac Injury Profile; [facility] 17:32 Test: CPK CREATINE PHOSPHOKINASE; Value: 70; Range: 26-192; Units: U/L; Status: F Test: CK-MB VALUE MASS; Value: 1.0; Range: 0.0-3.6; Units: NG/ML; Status: F Test: MB/CK RELATIVE INDEX; Value: 1.42; Range: < OR =4; Status: F Test Note: ; DIAGNOSIS CRITERIA MMB ng/ml Relative Index (RI) NON-AMI < or = 5 N/A [place] > 5 < or = 4 AMI > 5 > 4 Lab Order: D-Dimer Quant; [facility] 06/16/16 17:32 Test: D-DIMER QUANT; Value: < 270.0; Range: <500; Units: ng/ml; Status: F Lab Order: Troponin; [facility] 06/16/16 17:32 Test: TROPONIN I; Value: < 0.02; Range: < 0.10; Units: NG/ML; Status: F Test Note: ; Troponin I Reference Interval for [place] LOCI: 99th Percentile= 0.00-0.045 ng/ml Risk Stratification: <= 0.10 ng/ml Decreased Risk for Adverse Clinical Events. 0.10-1.50 ng/ml Increased Risk for Adverse Clinical Events. Evaluation of additional criterion and/or repeat testing in 2-6 hours is suggested to rule out myocardial damage. >= 1.50 ng/ml Indicative of Myocardial Injury. Lab Order: Liver Profile; SPEC'M 06/16/16 17:32 Test: AST/SGOT; Value: 11; Range: 15-37; Abnormal: Below low normal; Units: U/L; Status: F Test: ALT/SGPT; Value: 32; Range: 12-78; Units: U/L; Status: F Test: ALKALINE PHOSPHATASE; Value: 96; Range: 45-117; Units: U/L; Status: F Test: BILIRUBIN,TOTAL; Value: 0.5; Range: 0.2-1.0; Units: MG/DL; Status: F Test: BILIRUBIN,DIRECT; Value: 0.1; Range: 0.0-0.2; Units: MG/DL; Status: F Test: TOTAL PROTEIN; Value: 7.1; Range: 6.4-8.2; Units: GM/DL; Status: F Test: ALBUMIN; Value: 4.0; Range: 3.2-5.2; Units: GM/DL; Status: F Test: ALBUMIN/GLOBULIN RATIO; Value: 1.29; Range: 1.00-1.93; Status: F Lab Order: Lipase; SPEC'M 06/16/16 17:32 Test: LIPASE; Value: 169; Range: 73-393; Units: U/L; Status: F Radiology Order: EKG-ADULT Test: EKG-ADULT REASON FOR EXAMINATION: Chest Pain; Stationary ECG Study; [facility] - ED; ; Test Date: 2016-06-16; Pat Name: SANDRA GORDON Department:; Room: -; Gender: F 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:; : 1965 Requested By: Jose Alberto Virgen; Order Number: [id number] Reading MD: Christina Curry; Measurements; Intervals [place]; Rate: 94 P: 5; NE: 153 QRS: 38; QRSD: 92 T: -11; QT: 349; QTc: 437; Interpretive Statements; SINUS RHYTHM; NONSPECIFIC ST T-WAVE ABNORMALITY; BASELINE ARTIFACT LIMITS INTERPRETATION; SIMILAR 12/12/14; Electronically Signed On 06-17-2016 12:54:15 EST by Christina Curry; Radiology Order: Chest, 2 View (pa\E\lat) Test: Chest, 2 View (pa\E\lat) REASON FOR EXAMINATION: Chest Pain; Clinical: Chest pain .; ; Comparison: 01/25/2005 .; ; Technique: PA and lateral.; ; Findings:; The mediastinum and cardiac silhouette are normal. The lung alvarez are clear and; without acute consolidation, effusion, or pneumothorax. The skeletal structures; are intact and normal.; ; Impression:; 1. No acute cardiopulmonary process.; ; ; Signed by; Timbo Quiñones MD 06/16/2016 06:22 P; Radiology Order: CT ABD & PELVIS: IV Contrast Only Test: CT ABD & PELVIS: IV Contrast Only REASON FOR EXAMINATION: Diverticulitis; ; CLINICAL HISTORY: Abdominal pain.; TECHNIQUE: Multiple axial, sagittal and coronal CT images were obtained through the abdomen and pelvi; s after administration of intravenous contrast material.; COMMENTS:; The liver demonstrates decreased attenuation compatible with fatty infiltration, without mass or def; ect. There is no intra or extrahepatic biliary ductal dilatation. The spleen is normal. The gallbladd; er is surgically absent. The pancreas is of normal contour and attenuation characteristics. There is; no evidence of adrenal mass.; Both kidneys demonstrate prompt and equal nephrograms. The kidneys are normal in size, shape and conf; iguration. There is no evidence of renal or ureteral mass. No renal or ureteral calculi are identifie; d. There is no hydroureter or hydronephrosis.; No evidence for appendicitis. There is no bowel wall thickening. No evidence for small or large star; l obstruction. There is no evidence of abdominal ascites or lymphadenopathy.; There is no evidence of intrinsic or extrinsic bladder mass. There is no pelvic ascites or lymphadeno; dorothy. 3.5 cm right ovarian cyst is seen. The uterus and left ovary are unremarkable.; Images of the lung bases show no evidence of pleural or parenchymal mass. There are no pleural effusi; ons.; The bony structures are free of lytic or blastic lesions. Multilevel degenerative changes are seen in; volving the thoracolumbar spine. Scattered calcifications are seen involving the aorta and major bran; ches compatible with atherosclerosis.; IMPRESSION:; Fatty liver.; 3.5 cm right ovarian cyst is seen. Consider follow-up pelvic ultrasound.; No evidence of diverticulosis or diverticulitis.; Thank you for your kind referral of this patient.; ; Outcome: 21:47 Discharge ordered by Provider. le 21:57 Discharge Assessment: Patient awake, alert and oriented x 3. No cognitive and/or af2 functional deficits noted. Patient verbalized understanding of disposition instructions. patient administered narcotics - no. The following High Risk Discharge criteria are identified: None. Discharged to home ambulatory. Condition: stable. Discharge instructions given to patient, Instructed on discharge instructions, follow up and referral plans. medication usage, no driving heavy equipment, no drinking with medication, Demonstrated understanding of instructions, medications, Pt was receptive of discharge instructions/ teaching. CT Study completed. Property :Personal belongings accompany Pt. 21:58 Patient left the ED. af2 Signatures: Dispatcher [employer] EDMS Magi Billings, RN RN dls Dinorah Brito, Reg Reg gb Miguel, Ana zo Leslie Rubio, REFRIGERATED NATIONAL TRUCK DRIVER REFRIGERATED NATIONAL TRUCK DRIVER Marco Antonio Delgado, FACIALIST FACIALIST dd6 Madeline Stephens,RN RN rs3 Earlene Almazan, FACIALIST FACIALIST Maribel Kuo RN RN af2 Sharlene Ag RN RN kc3 Cami Spencer, FACIALIST FACIALIST bnb Chart Complete MTDD
== END 2016-06-16 21:58 | disposition home or self-care (01) ==
LOC: M ED 17:08
DX: N83.201 Unspecified ovarian cyst, right side (principal); K76.0 Fatty (change of) liver, not elsewhere classified; E11.9 Type 2 diabetes mellitus without complications; I10 Essential (primary) hypertension; E78.5 Hyperlipidemia, unspecified; E78.00 Pure hypercholesterolemia, unspecified; Z79.899 Other long term (current) drug therapy; Z79.82 Long term (current) use of aspirin; Z79.84 Long term (current) use of oral hypoglycemic drugs; Z82.49 Family history of ischemic heart disease and other diseases of the circulatory system
CPT/HCPCS: 36415; 71020; 74177; 80048; 80076; 82550; 82553; 83690; 85025; 85379; 93005; 93041; 99285; Q9967

== ENCOUNTER → 2020-04-10 | Outpatient (REF) | payer BC, OTHER ==
[2020-04-10 17:51] LABS: APPEARANCE, URINE CLEAR (CLEAR); BACTERIA, URINE AUTO NEGATIVE (NEGATIVE); BILIRUBIN, URINE AUTO NEGATIVE (NEGATIVE); BLOOD, URINE BLOOD NEGATIVE (NEGATIVE); COLOR, URINE YELLOW (YELLOW); GLUCOSE, URINE (UA) AUTO 3+ mg/dL (NEGATIVE); KETONE, URINE AUTO TRACE mg/dL (NEGATIVE); LEUKOCYTE ESTERASE, URINE AUTO NEGATIVE (NEGATIVE); MUCUS, URINE SMALL (NEGATIVE); NITRITE, URINE AUTO NEGATIVE (NEGATIVE); PROTEIN, URINE AUTO NEGATIVE (NEGATIVE); RBC, URINE AUTO 2 /HPF (0-3); SPECIFIC GRAVITY URINE AUTO 1.037 (1.002-1.035); SQUAMOUS EPITHELIAL CELL UR AU 0 /HPF (0-6); UROBILINOGEN, URINE AUTO 0.2 mg/dL (0.0-2.0); WBC, URINE AUTO 0 /HPF (0-3)
== END ==
LOC: M LAB REF 16:14
PROVIDERS: ATTEND Obstetrics & Gynecology
DX: N39.0 Urinary tract infection, site not specified (principal)

== ENCOUNTER → 2024-09-13 | Outpatient (CLI) | payer BC ==
[~2024-09-13] MED LIST: PROHANCE 279.3MG/ML 15ML VIAL ONE
== END ==
LOC: M PLAIMG 14:04
PROVIDERS: ATTEND Nurse Practitioner Family
DX: K86.89 Other specified diseases of pancreas (principal); Z86.0101 Personal history of adenomatous and serrated colon polyps; Z80.0 Family history of malignant neoplasm of digestive organs; R10.32 Left lower quadrant pain; K76.0 Fatty (change of) liver, not elsewhere classified; N28.1 Cyst of kidney, acquired
CPT/HCPCS: 74183; A9576